=== PATIENT | male | born 1990 ===

== ENCOUNTER 2020-12-11 21:11 | Emergency (ER) | payer MEDICARE, MEDICAID, SELFPAY ==
[2020-12-11 21:18] VITALS: BP 160/103; PULSE 76; RESP 18; TEMP 36.7; O2SAT 97
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
[2020-12-11] MEDS: Doxycycline Hyclate 100 MG CAP PO ×2 (22:05)
[2020-12-11] MEDS: valACYclovir 1,000 MG TAB 1000 MG PO ×2 (22:06)
[2020-12-11] MEDS: Lidocaine 5% Patch 1 PATCH TP (22:16)
[2020-12-14 11:48] LABS: Lyme Ab w Rflx to Lyme Confirm Negative (Negative)
[2020-12-15 19:28] LABS: Anaplasma phagocytophilum Negative (Negative); B. miyamotoi PCR Negative (Negative); Babesia divergens/MO-1 Negative (Negative); Babesia duncani Negative (Negative); Babesia microti Negative (Negative); Ehrlichia chaffeensis Negative (Negative); Ehrlichia ewingii/canis Negative (Negative); Ehrlichia muris eauclairensis Negative (Negative)
== END 2020-12-11 22:20 | disposition home or self-care (01) ==
PROVIDERS: Emergency Provider Physician Assistant
DX: G51.0 Bell's palsy (principal); T22.051A Burn of unspecified degree of right shoulder, initial encounter; X19.XXXA Contact with other heat and hot substances, initial encounter
CPT/HCPCS: 36415; 87798; 99283; 86618